=== PATIENT | female | born 1985 | race Caucasian/White ===

== ENCOUNTER → 2016-09-09 | Outpatient (CLI) | payer MEDICAID | LOC: FIMAGING 14:03 | PROVIDERS: ATTEND Family Medicine | DX: Z32.01 Encounter for pregnancy test, result positive (principal); Z3A.09 9 weeks gestation of pregnancy ==

== ENCOUNTER → 2016-11-21 | Outpatient (CLI) | payer MEDICAID | LOC: FIMAGING 08:01 | PROVIDERS: ATTEND Midwife | DX: Z34.02 Encounter for supervision of normal first pregnancy, second trimester (principal); Z3A.19 19 weeks gestation of pregnancy ==

== ENCOUNTER 2017-01-26 02:04 | Observation (INO) | payer MEDICAID ==
[2017-01-26] MEDS ORDERED: ONDANSETRON 4 MG/2 ML VIAL IVP PRN (02:15)
[2017-01-26] MEDS ORDERED: TERBUTALINE SULFATE 1 MG/ML VIAL IV PRN (02:37)
[2017-01-26] MEDS ORDERED: LR 1,000 ML IV PRN (02:37)
[2017-01-26] MEDS ORDERED: LR 1,000 ML IV ONE (03:00)
[2017-01-26 03:05] LABS: % IMMATURE GRANULYOCYTES 0.6 % (0.0-1.1); ADD DIFF? NO; ADD MORPH? NO; ADD SCAN? NO; ATYPICAL LYMPHOCYTE FLAG 0 (0-99); FRAGMENT RBC FLAG 0 (0-99); HEMOGLOBIN 11.6 g/dL (12.6-16.3); LEFT SHIFT FLG 0 (0-99); LIPEMIA HEMOLYSIS FLAG 90 (0-99); MEAN CELL HEMOGLOBIN 32.6 pg (27.9-34.1); MEAN CELL HEMOGLOBIN CONCENTR. 35.2 g/dL (32.4-36.7); MEAN CELL VOLUME 92.7 fL (81.5-99.8); MEAN PLATELET VOLUME 10.3 fL (8.7-11.7); PLATELET CLUMPS FLAG 0 (0-99); PLATELET COUNT 224 10^3/uL (150-400); RED BLOOD CELL COUNT 3.56 10^6/uL (4.18-5.33); RED CELL DISTRIBUTION WIDTH 12.6 % (11.5-15.2)
[2017-01-26 03:11] LABS: ALANINE AMINOTRANSFERASE 37 IU/L (9-52); ASPARTATE AMINOTRANSFERASE 23 IU/L (14-46); BILIRUBIN,TOTAL 0.6 mg/dL (0.1-1.4); BILIRUBIN-CONJUGATED 0.1 mg/dL (0.0-0.5); BILIRUBIN-UNCONJUGATED 0.5 mg/dL (0.0-1.1); CREATININE 0.8 mg/dL (0.6-1.0); GLOMERULAR FILTRATION RATE > 60; LACTATE DEHYDROGENASE 436 IU/L (313-618); URIC ACID 6.1 mg/dL (2.5-6.8)
[2017-01-26] MEDS ORDERED: D5W LR 1,000 ML IV SCH (03:30)
--- NOTE | 2017-01-26 08:05 | GHP ---
[f rep st] PREOP HISTORY AND PHYSICAL DATE OF ADMISSION: 01/26/2017 ADMISSION DIAGNOSES: 1. Intrauterine at 29-1/7 weeks' gestation. 2. Contractions. 3. Gastroenteritis. DISCHARGE DIAGNOSES: 1. Intrauterine at 29-1/7 weeks' gestation. 2. Contractions, resolved. 3. Gastroenteritis. INDICATIONS: Patient is a 31-year-old, 2, para 0-0-1-0, who is 29-1/7 weeks' gestation. She called me yesterday afternoon complaining of increasing lower abdominal cramping. She was at work. She hydrated well. She came home from work a couple of hours later and had large amounts of diarrhe a, and then had 2-3 episodes of significant projectile vomiting. The patient then began denise and arrived on Labor and Delivery for evaluation. She was denise upon arrival and status overall remained reassuring. Pre-eclampsia labs were obtained which were normal, with the exception of the elevated white blood count and slight anemia. The patient received a 1 L fluid bolus and then followed by 500 cc of D5-LR. The patient's denise and cramping essentially resolved, sta tus remained reassuring, and patient was complaining of significant pain in her left mid back, that w as about a golf ball-sized point tenderness, and she was writhing in pain and not able to sleep. Pat ient was given 1 mg of morphine and patient's pain immediately resolved. It has been several hours s laura that time, and patient has not had any further pain. She is not having any cramping. She is anaya ving good movement. She is able to keep down foods, and patient is anxious to go home. She de clined cervical exam and patient is not denise, so 1 was not done. precautions and kick counts were stressed with the patient, hydration was discussed, and pre-eclampsia precautions were d iscussed. The patient has a scheduled appointment with us Friday in the office. She will keep th at or call us if anything happens, and she needs to be seen sooner. /[id number]/MODL
== END 2017-01-26 08:00 | disposition home or self-care (01) ==
LOC: FLD 02:04
PROVIDERS: ADMIT Obstetrics & Gynecology; ATTEND Obstetrics & Gynecology
DX: O99.613 Diseases of the digestive system complicating pregnancy, third trimester (principal); K52.9 Noninfective gastroenteritis and colitis, unspecified; Z3A.29 29 weeks gestation of pregnancy
CPT/HCPCS: G0378 ×2; J2405

== ENCOUNTER → 2017-02-03 | Outpatient (CLI) | payer MEDICAID | LOC: FIMAGING 13:56 | PROVIDERS: ATTEND Obstetrics & Gynecology | DX: Z03.79 Encounter for other suspected maternal and fetal conditions ruled out (principal); Z3A.30 30 weeks gestation of pregnancy ==

== ENCOUNTER 2017-03-24 05:25 | Observation (INO) | payer MEDICAID ==
[2017-03-24] MEDS ORDERED: TERBUTALINE SULFATE 1 MG/ML VIAL IV ONE (06:03)
[2017-03-24 06:17] LABS: % IMMATURE GRANULYOCYTES 0.5 % (0.0-1.1); ABSOLUTE IMMATURE GRANULOCYTES 0.05 10^3/uL (0.00-0.10); ADD DIFF? NO; ADD MORPH? NO; ADD SCAN? NO; ATYPICAL LYMPHOCYTE FLAG 10 (0-99); FRAGMENT RBC FLAG 0 (0-99); HEMATOCRIT 33.5 % (38.0-47.0); LEFT SHIFT FLG 0 (0-99); LIPEMIA HEMOLYSIS FLAG 90 (0-99); MEAN CELL HEMOGLOBIN 33.1 pg (27.9-34.1); MEAN CELL HEMOGLOBIN CONCENTR. 35.8 g/dL (32.4-36.7); MEAN CELL VOLUME 92.3 fL (81.5-99.8); MEAN PLATELET VOLUME 10.8 fL (8.7-11.7); PLATELET CLUMPS FLAG 20 (0-99); PLATELET COUNT 261 10^3/uL (150-400); RED BLOOD CELL COUNT 3.63 10^6/uL (4.18-5.33); RED CELL DISTRIBUTION WIDTH 12.9 % (11.5-15.2)
[2017-03-24] MEDS ORDERED: LR 1,000 ML IV ONE (07:30)
[2017-03-24] MEDS ORDERED: OLIVE OIL 118 ML BTL ONE (07:49)
[2017-03-24 07:55] VITALS: BP 99/63; PULSE 86
[2017-03-24] MEDS ORDERED: OLIVE OIL 118 ML BTL MISC ONE (08:14)
== END 2017-03-24 09:00 | disposition home or self-care (01) ==
LOC: FLD 05:25
PROVIDERS: ADMIT Obstetrics & Gynecology; ATTEND Obstetrics & Gynecology
PROC: 10S0XZZ Reposition Products of Conception, External Approach (ICD-10-PCS; principal; 2017-03-24)
DX: O32.1XX0 Maternal care for breech presentation, not applicable or unspecified (principal)
CPT/HCPCS: J3105

== ENCOUNTER 2017-04-19 06:00 | Inpatient (IN) | payer MEDICAID ==
[2017-04-19] MEDS ORDERED: TERBUTALINE SULFATE 1 MG/ML VIAL IV PRN (07:36)
[2017-04-19] MEDS ORDERED: OXYTOCIN 20 UNIT in LR 1,000 ML IV PRN (07:36)
[2017-04-19] MEDS ORDERED: LR 1,000 ML IV PRN (07:36)
[2017-04-19] MEDS ORDERED: EPSOM SALT 454 GM TP PRN (07:36)
[2017-04-19] MEDS ORDERED: OLIVE OIL 118 ML BTL MISC PRN (07:36)
[2017-04-19] MEDS ORDERED: LIDOCAINE 1% 300 MG/30 ML SDV ONE (07:40)
[2017-04-19] MEDS ORDERED: OXYTOCIN 10 UNIT/ML VIAL ONE (07:41)
[2017-04-19] MEDS ORDERED: MISOPROSTOL 200 MCG TAB ONE (07:41)
[2017-04-19] MEDS ORDERED: AMMONIA AROMATIC 1 EACH AMP IH ONE (07:41)
[2017-04-19] MEDS ORDERED: OLIVE OIL 118 ML BTL ONE (07:41)
[2017-04-19] MEDS ORDERED: TERBUTALINE SULFATE 1 MG/ML VIAL ONE (07:41)
--- NOTE | 2017-04-19 07:41 | OBPROG ---
Labor Progress Note Assessment/Plan: Assessment:cat 1 fhr pitocin per protocol exam 3-/-2 cephalic no regular contractions postdates Plan:pitocin per protocol 04/19/17 07:39 Subjective/Intrapartum Course: 04/19/17 07:37 Doing well denies pain with the west. Able to discontinue the west with an exam. - SVE Dilation (cm): 3, 4 Effacement (%): 75 Station: -2 Membranes: Intact - Contraction Pattern Assessment Current Contraction Pattern: Irregular - FHR Assessment Renner FHR (bpm): 135 FHR Pattern Variability: Moderate FHR Category: 1 - AP Antepartum Course: 31 yo edc 04/12 2017 came in for iol for postdates. West bulb in place on admit to labor and delivery, smoker quit with early , growth us 42% with last us, gbs negative, exam after west 3-/-2 cephalic soft pitocin begun per protocol 04/19/17 07:41 - Physical Exam General Appearance: WD/WN, alert, no apparent distress Respiratory: chest non-tender, lungs clear, normal breath sounds Cardiac/Chest: regular rate, rhythm Abdomen: normal bowel sounds Extremities: normal range of motion, Birdie's sign (negative bilaterally) DTR- Lower Extremities: Knee (R): 1+, Knee (L): 1+ (no clonus) Skin: normal color, warm/dry Neuro/Psych: no motor/sensory deficits, alert, normal mood/affect, oriented x 3 Oxytocin Orders Assessment - Pre-Induction/Augmentation Assessment Gestational Age: 41 week(s) and 0 day(s) ICD10 Worksheet Patient Problems: Problems Problem Status Onset iol term postdates Acute
[2017-04-19] MEDS ORDERED: OXYTOCIN 30 UNIT in NS 500 ML IV SCH (07:45)
--- NOTE | 2017-04-19 08:22 | GHP ---
[f rep st] HISTORY AND PHYSICAL DATE OF ADMISSION: 04/19/2017 HISTORY OF PRESENT ILLNESS: Patient is a 31-year-old, 1, para 0, with an EDC of 04/12/2017 who has a gestational age of 41 weeks who has been routinely seen through [facility] with transfer of care at 22 weeks. The patient has had menarche since 15 years. Interval is 3 to 4 weeks. Length is 7 days. Patient is usually irregular. LMP was 07/08/2016 with uncertain, had an early ultrasound that helped to confirm. Ultrasound was on 11/21/2016, size equals dates. EFW was 35th percentile. No previa. Anatomy was within normal limits. Had early Zika testing because she had traveled to [facility]. That was negative. The patient was a smoker, quit with the . PAST MEDICAL HISTORY: The patient has a history of asthma, history of anemia. Previously a smoker who quit 3 weeks with knowledge of . Previously rubella immunized. Varicella immunized. PAST SURGICAL HISTORY: Sports injury. Tore right ACL with repair in 2007, appendectomy in 2014. SOCIAL HISTORY: The patient is . Denies drug use. No longer smoking. MEDICATIONS: vitamins and iron. ALLERGIES: Denies allergies. FAMILY HISTORY: Benign. REVIEW OF SYSTEMS: Times 8 is benign. LABS: Patient is A positive, antibody negative. RPR is nonreactive. Rubella is immune. Hepatitis is negative. HIV is negative. TSH was within normal limits on 09/17/2016. Hepatitis C was negative. HSV was negative. Varicella immunity was positive. Zika was negative. Pap was within normal limits. Gonorrhea and chlamydia were negative. Verifi was negative. 1-hour GTT was within normal limits. PHYSICAL EXAMINATION: GENERAL: Patient is awake, alert, oriented x3. LUNGS: Clear bilaterally. ABDOMEN: Bowel sounds are positive in all 4 quadrants. EXTREMITIES: DTRs are 1+ bilaterally with no clonus. Homans sign is negative bilaterally. PLAN OF CARE: 1. GBS negative. 2. Rios bulb for ripening. That was discontinued on assessment of cervix with admit to Labor and Delivery. The patient was 3 to 4 cm, 75% effaced, -2 station, cephalic and soft. 3. Pitocin per protocol. 4. Consult Dr. Melody Cantrell as needed for plan of care and patient safety. /[id number]/MODL MTDD
[2017-04-19 08:38] LABS: % IMMATURE GRANULYOCYTES 0.3 % (0.0-1.1); ABSOLUTE IMMATURE GRANULOCYTES 0.04 10^3/uL (0.00-0.10); ADD DIFF? NO; ADD MORPH? NO; ADD SCAN? NO; ATYPICAL LYMPHOCYTE FLAG 10 (0-99); FRAGMENT RBC FLAG 0 (0-99); HEMATOCRIT 36.4 % (38.0-47.0); HEMOGLOBIN 13.2 g/dL (12.6-16.3); LEFT SHIFT FLG 0 (0-99); LIPEMIA HEMOLYSIS FLAG 90 (0-99); MEAN CELL HEMOGLOBIN 33.2 pg (27.9-34.1); MEAN CELL HEMOGLOBIN CONCENTR. 36.3 g/dL (32.4-36.7); MEAN CELL VOLUME 91.7 fL (81.5-99.8); MEAN PLATELET VOLUME 11.4 fL (8.7-11.7); PLATELET CLUMPS FLAG 0 (0-99); PLATELET COUNT 209 10^3/uL (150-400); RED BLOOD CELL COUNT 3.97 10^6/uL (4.18-5.33)
--- NOTE | 2017-04-19 11:23 | OBPROG ---
Labor Progress Note Assessment/Plan: Assessment:cat 1 fhr pitocin per protocol at 8 mu contractions q2-3 minutes feeling some cramping arom clear fluid exam 3-75/-1 cephalic postdates iol Plan:pitocin per protocol arom clear fluid 04/19/17 07:39 04/19/17 11:22 Subjective/Intrapartum Course: 04/19/17 07:37 Doing well denies pain with the west. Able to discontinue the west with an exam. 04/19/17 11:21 denies regular pain. Feeling some cramping. Ok to break bag of water per patient Objective: 04/19/17 08:00 Patient ABO/Rh A POSITIVE 04/19/17 08:00 - SVE Dilation (cm): 3, 4 Effacement (%): 75 Station: -1 Membranes: AROM Amniotic Fluid Color: Clear - Contraction Pattern Assessment Current Contraction Pattern: Regular - FHR Assessment Renner FHR (bpm): 135 FHR Pattern Variability: Moderate FHR Category: 1 - Procedures Non-surgical Procedures: Amniotomy - AP Antepartum Course: 31 yo edc 04/12 2017 came in for iol for postdates. West bulb in place on admit to labor and delivery, smoker quit with early , growth us 42% with last us, gbs negative, exam after west 3-75/-2 cephalic soft pitocin begun per protocol 04/19/17 07:41 Oxytocin Orders Assessment - Pre-Induction/Augmentation Assessment Gestational Age: 41 week(s) and 0 day(s) ICD10 Worksheet Patient Problems: Problems Problem Status Onset iol term postdates Acute
[2017-04-19] MEDS ORDERED: fentaNYL 2MCG/ML/BUP 0.1% RTU 100 ML BAG EP ONE (16:25)
[2017-04-19] MEDS ORDERED: PHENYLEPHRINE HCL 100 MCG/ML SYR ONE (16:25)
--- NOTE | 2017-04-19 16:57 | PREANESOB ---
Obstetric Pre-Anesthesia Info - General Info Proposed Procedure: LABOR EPIDURAL : 2 Para: 0 RAMIN: 04/12/17 Gestational Age: 41 week(s) and 0 day(s) - Labor Status Cervical Dilation per last OB SVE: 3, 4 Station per last OB SVE: -1 Amniotic Fluid Color: Clear Anesthesia ROS: WNL Allergies/Adverse Reactions: Allergy/AdvReac Type Severity Reaction Status Date / Time No Known Allergies Allergy Verified 01/26/17 02:51 Home Medications: Medication Instructions Recorded Albuterol [Proventil Inhaler] 2 puffs IH 02/10/13 oxyCODONE/APAP 5/325 [Percocet 1 tab PO Q6 #10 tab 01/12/15 5/325] Visit Medications: Generic Name Dose Route Start Last Admin Trade Name Freq PRN Reason Stop Dose Admin Lactated Ringer's 1,000 mls @ 0 mls/hr 04/19/17 07:36 Lr IV 04/20/17 07:35 PRN PRN SEE PROTOCOL CONDITIONS Protocol Per Protocol Oxytocin 20 unit/ Lactated 1,002 mls @ 150 mls/hr 04/19/17 07:36 Ringer's IV PRN PRN Post- bleeding Oxytocin 30 unit/ Sodium 503 mls @ 0 mls/hr 04/19/17 07:45 Chloride IV 10/16/17 07:44 CONT LUZ MARIA Protocol Per Protocol Ibuprofen 600 mg 04/19/17 07:36 Motrin PO 10/16/17 07:35 Q6HRS PRN post , inflammation Magnesium Sulfate 454 gm 04/19/17 07:36 Epsom Salt TP 10/16/17 07:35 Q1H PRN perineal discomfort Glen Oil 118 ml 04/19/17 07:36 Sweet Oil MISC 10/16/17 07:35 ONCE PRN perineal massage Terbutaline Sulfate 0.25 mg 04/19/17 07:36 Brethine IV 10/16/17 07:35 ONCE PRN Tachysystole Discontinued Medications Generic Name Dose Route Start Last Admin Trade Name Freq PRN Reason Stop Dose Admin Ammonia (Aromatic Spirit) Confirm 04/19/17 07:41 Ammonia Aromatic Administered 04/19/17 07:42 Dose 1 each IH .STK-MED ONE Ephedrine Sulfate Confirm 04/19/17 16:25 Ephedrine Sulfate Administered 04/19/17 16:26 Dose 50 mg .ROUTE .STK-MED ONE Fentanyl/Bupivacaine HCl Confirm 04/19/17 16:25 Fentanyl/Bupivacaine/Ns 2 Mcg/Ml 0.1% (Premix Administered 04/19/17 16:26 Dose 100 ml EP .STK-MED ONE Lidocaine HCl Confirm 04/19/17 07:40 Lidocaine Hcl 1% Administered 04/19/17 07:41 Dose 300 mg .ROUTE .STK-MED ONE Misoprostol Confirm 04/19/17 07:41 Cytotec Administered 04/19/17 07:42 Dose 800 mcg .ROUTE .STK-MED ONE Glen Oil Confirm 04/19/17 07:41 Sweet Oil Administered 04/19/17 07:42 Dose 118 ml .ROUTE .STK-MED ONE Oxytocin Confirm 04/19/17 07:41 Pitocin Administered 04/19/17 07:42 Dose 40 unit .ROUTE .STK-MED ONE Phenylephrine HCl Confirm 04/19/17 16:25 Neosynephrine Administered 04/19/17 16:26 Dose 1,000 mcg .ROUTE .STK-MED ONE Terbutaline Sulfate Confirm 04/19/17 07:41 Brethine Administered 04/19/17 07:42 Dose 1 mg .ROUTE .STK-MED ONE - Vital Signs Height/Weight (Nursing): Height 160.02 cm Weight 63.503 kg - Focused Exam Neck exam: FROM Mallampati Score: Class 1 Mouth exam: normal dental/mouth exam Pulmonary: no respiratory distress Cardiovascular: regular rate and rhythym Labs: 04/19/17 08:00 Patient ABO/Rh A POSITIVE 04/19/17 08:00 - Plan Consent Signed and on Chart: Yes Patient/Guardian Understands and Agrees to Plan: Yes Urgent/Emergent Case: Divya orosco completed preop but documented later for safe timely pt care
[2017-04-19] MEDS ORDERED: ONDANSETRON 4 MG/2 ML VIAL IVP PRN (16:58)
[2017-04-19] MEDS ORDERED: PHENYLEPHRINE HCL 100 MCG/ML SYR IVP PRN (16:58)
[2017-04-19] MEDS ORDERED: fentaNYL 2MCG/ML/BUP 0.1% RTU 100 ML EP SCH (17:00)
[2017-04-19] MEDS ORDERED: LR 500 ML IV SCH (17:00)
--- NOTE | 2017-04-19 17:35 | OBPROG ---
Labor Progress Note Assessment/Plan: Assessment:cat 1 fhr pitocin per protocol at 8 mu previous tachysystole from 6-8 mu inadequete mvus contractions q3-4 minutes denies pain after epidural placement clear fluid continues exam /0 cephalic postdates iol iupc placed Plan:pitocin per protocol 04/19/17 07:39 04/19/17 11:22 04/19/17 17:32 Subjective/Intrapartum Course: 04/19/17 07:37 Doing well denies pain with the west. Able to discontinue the west with an exam. 04/19/17 11:21 denies regular pain. Feeling some cramping. Ok to break bag of water per patient 04/19/17 17:31 feeling more comfortable after epidural placement. Denies pain.Ok with placement of iupc to assist with contractions strength and adequecy. Objective: 04/19/17 08:00 Patient ABO/Rh A POSITIVE 04/19/17 08:00 - SVE Membranes: AROM Amniotic Fluid Color: Clear - Contraction Pattern Assessment Current Contraction Pattern: Regular - Procedures Non-surgical Procedures: Amniotomy - AP Antepartum Course: 31 yo edc 04/12 2017 came in for iol for postdates. West bulb in place on admit to labor and delivery, smoker quit with early , growth us 42% with last us, gbs negative, exam after west 3-75/-2 cephalic soft pitocin begun per protocol 04/19/17 07:41 Oxytocin Orders Assessment - Pre-Induction/Augmentation Assessment Gestational Age: 41 week(s) and 0 day(s) ICD10 Worksheet Patient Problems: Problems Problem Status Onset iol term postdates Acute
[2017-04-19] MEDS ORDERED: CEFAZOLIN 2 GM/DEXTROSE/100 ML BAG IV ONE (23:00)
[2017-04-19] MEDS ORDERED: CITRIC ACID/SODIUM CITRATE 30 ML UDCUP ONE (23:01)
--- NOTE | 2017-04-19 23:08 | OBPROG ---
Labor Progress Note Assessment/Plan: Assessment:cat 1 fhr pitocin off contractions q3-4 minutes denies pain + bloody show clear fluid continues exam 5/80/0 cephalic head above the cervix no change in the cervical dilation postdates iol iupc in place continued inadequate contractions pattern with many attempts to utilize pitocin changing doses multiple to times to get there with no success Plan:consulted dr. tavarez on POC on way to the hospital, anesthesia notified of plan will proceed with section 04/19/17 07:39 04/19/17 11:22 04/19/17 17:32 04/19/17 23:05 Subjective/Intrapartum Course: 04/19/17 07:37 Doing well denies pain with the west. Able to discontinue the west with an exam. 04/19/17 11:21 denies regular pain. Feeling some cramping. Ok to break bag of water per patient 04/19/17 17:31 feeling more comfortable after epidural placement. Denies pain.Ok with placement of iupc to assist with contractions strength and adequecy. 04/19/17 23:05 denies pain with the epidural. Discussed need for section no change in the cervix ok with POC Objective: 04/19/17 08:00 Patient ABO/Rh A POSITIVE 04/19/17 08:00 - SVE Dilation (cm): 5 Effacement (%): 100 Station: 0 Membranes: AROM Amniotic Fluid Color: Clear - Contraction Pattern Assessment Current Contraction Pattern: Regular - FHR Assessment Renner FHR (bpm): 125 FHR Pattern Variability: Moderate FHR Category: 1 - Procedures Non-surgical Procedures: Amniotomy - AP Antepartum Course: 31 yo edc 04/12 2017 came in for iol for postdates. West bulb in place on admit to labor and delivery, smoker quit with early , growth us 42% with last us, gbs negative, exam after west 3-4/75/-2 cephalic soft pitocin begun per protocol 04/19/17 07:41 Oxytocin Orders Assessment - Pre-Induction/Augmentation Assessment Gestational Age: 41 week(s) and 0 day(s) ICD10 Worksheet Patient Problems: Problems Problem Status Onset iol term postdates Acute
--- NOTE | 2017-04-19 23:14 | OBPROG ---
Labor Progress Note Assessment/Plan: Assessment:cat 1 fhr 1945 late note pitocin increasing pitocin, tachsystole on and off adjusting pitocin accordingly contractions q3-4 minutes denies pain + bloody show clear fluid continues exam 5/100/0 cephalic head from changed from 4-5 cervical dilation postdates iol iupc in place Plan:pitocin per protocol, dr. tavarez consulted on poc 04/19/17 07:39 04/19/17 11:22 04/19/17 17:32 04/19/17 23:05 04/19/17 23:09 Subjective/Intrapartum Course: G!P) ga 41 weeks west bulb, pitocin, epidural, slow change in cervix, iupc multiple attempts to achieve adequete strength in contractions. slow change in cervix all day . proceeded to section for failure to descend and failure to dilate 04/19/17 07:37 Doing well denies pain with the west. Able to discontinue the west with an exam. 04/19/17 11:21 denies regular pain. Feeling some cramping. Ok to break bag of water per patient 04/19/17 17:31 feeling more comfortable after epidural placement. Denies pain.Ok with placement of iupc to assist with contractions strength and adequecy. 04/19/17 23:05 denies pain with the epidural. Discussed need for section no change in the cervix ok with POC 04/19/17 23:12 Objective: 04/19/17 08:00 Patient ABO/Rh A POSITIVE 04/19/17 08:00 - SVE Dilation (cm): 5 Effacement (%): 100 Station: 0 Membranes: AROM Amniotic Fluid Color: Clear - Contraction Pattern Assessment Current Contraction Pattern: Regular - Procedures Non-surgical Procedures: Amniotomy - AP Antepartum Course: 31 yo edc 04/12 2017 came in for iol for postdates. West bulb in place on admit to labor and delivery, smoker quit with early , growth us 42% with last us, gbs negative, exam after west 3-4/75/-2 cephalic soft pitocin begun per protocol 04/19/17 07:41 Oxytocin Orders Assessment - Pre-Induction/Augmentation Assessment Gestational Age: 41 week(s) and 0 day(s) ICD10 Worksheet Patient Problems: Problems Problem Status Onset iol term postdates Acute
[2017-04-19] MEDS ORDERED: LR 500 ML IV ONE (23:18)
[2017-04-19] MEDS ORDERED: ceFAZolin 2 GM/DEXTROSE 100 ML IV ONE (23:18)
[2017-04-19] MEDS ORDERED: FAMOTIDINE 20 MG/NACL 50 ML IV ONE (23:18)
[2017-04-19] MEDS ORDERED: LIDOCAINE 2% 5 ML SDV ONE (23:23)
[2017-04-19] MEDS ORDERED: LR 1,000 ML IV SCH (23:30)
[2017-04-19] MEDS ORDERED: OXYTOCIN 100 UNITS/10 ML VIAL ONE (23:55)
[2017-04-19] MEDS ORDERED: fentaNYL 100 MCG/2 ML INJ ONE (23:55)
[2017-04-20] MEDS ORDERED: METHYLERGONOVINE MAL 0.2 MG/ML INJ ONE (00:06)
[2017-04-20] MEDS ORDERED: morphINE PF 5 MG/10 ML INJ ONE (00:14)
[2017-04-20] MEDS ORDERED: fentaNYL 100 MCG/2 ML INJ IVP PRN (00:28)
[2017-04-20] MEDS ORDERED: MEPERIDINE 25 MG/ML SYR IVP PRN (00:28)
[2017-04-20] MEDS ORDERED: ONDANSETRON 4 MG/2 ML VIAL IVP PRN (00:28)
[2017-04-20] MEDS ORDERED: SIMETHICONE 80 MG TAB CHEW PO PRN (00:43)
[2017-04-20] MEDS ORDERED: BISACODYL 10 MG SUPP PR PRN (00:43)
[2017-04-20] MEDS ORDERED: HYDROCODONE/APAP 5/325 TAB PO PRN (00:43)
[2017-04-20] MEDS ORDERED: POLYETHYLENE GLYCOL 3350 17 GM PKT PO PRN (00:43)
[2017-04-20] MEDS ORDERED: DOCUSATE SODIUM 100 MG CAP PO PRN (00:43)
[2017-04-20] MEDS ORDERED: LACTULOSE 20 GM/30 ML UDCUP PO PRN (00:43)
[2017-04-20] MEDS ORDERED: PROMETHAZINE HCL 25 MG/ML INJ IVP PRN (00:43)
[2017-04-20] MEDS ORDERED: MAGNESIUM HYDROXIDE 30 ML UDCUP PO PRN (00:43)
--- NOTE | 2017-04-20 00:49 | OBDEL ---
Info Type: Primary Presentation at Delivery: Vertex L&D Analgesia/Anesthesia Type: Epidural GBS+: No Intrapartum Medications: Generic Name Dose Route Start Last Admin Trade Name Freq PRN Reason Stop Dose Admin Ondansetron HCl 4 mg 04/19/17 16:58 04/19/17 20:53 Zofran IVP 04/20/17 16:57 4 mg Q4HRS PRN Administration Nausea/Vomiting, Can't Take PO Discontinued Medications Generic Name Dose Route Start Last Admin Trade Name Freq PRN Reason Stop Dose Admin Famotidine/Sodium Chloride 50 mls @ 200 mls/hr 04/19/17 23:18 04/19/17 23:25 Pepcid 20 Mg (Premix) IV 04/19/17 23:32 50 mls ONCE ONE Administration - Care Provider Offset 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 slow change in cervix all day . proceeded to section for failure to descend and failure to dilate 04/19/17 07:37 Doing well denies pain with the west. Able to discontinue the west with an exam. 04/19/17 11:21 denies regular pain. Feeling some cramping. Ok to break bag of water per patient 04/19/17 17:31 feeling more comfortable after epidural placement. Denies pain.Ok with placement of iupc to assist with contractions strength and adequecy. 04/19/17 23:05 denies pain with the epidural. Discussed need for section no change in the cervix ok with POC 04/19/17 23:12 Indications for Delivery: Postterm Unfavorable Cervix (Arrest of dilation-failure to progress) Vaginal Delivery - Labor and Delivery Amniotic Fluid Color: Clear Non-surgical Procedures: Amniotomy Operative Report - Delivery Pre-op Diagnoses: IUP @ 41 1/7 wks for postdate IOL with arrest of dilation- failure to progress Post-op Diagnoses: IUP @ 41 1/7 wks for postdate IOL with arrest of dilation- failure to progress History of Prior Section: No Number of Prior Sections: 0 Nulliparous Prior to Delivery: Yes Indications for Current Section: Arrest of Dilation Procedure: Low Transverse Surgeon: Melody Cantrell [employer] Laboratory Chief: Bessy Joyner Anesthesiologist: Manish Norris Complications: Other (Specify) (uterine inversion) Findings: A viable female at 1159 with 8 and 9 Apgars in cephalic presentation. Delayed cord clamping x 60 seconds. Cord clamped x 2 and then cut. Cord blood obtained. Placenta delivered spontaneously intact with 3-vc. Uterine inversion was noted and reverted to normal position. Grossly normal appearing uterus, tubes and ovaries b/l. Specimen(s)/Path: Other (Specify) (none) IV Fluid (ml): 2,500 EBL: 800 cc UO: 150 cc clear urine at end Data RAMIN: 04/12/17 Gestational Age: 41 week(s) and 1 day(s) Renner Delivery Date: 04/19/17 Delivery Time: 11:59 Sex of Infant: Female ("Barb") Score (1 Min): 8 Score (5 Min): 9 ICD10 Worksheet Patient Problems: Problems Problem Status Onset Arrest of dilation, delivered, current hospitalization Acute S/P primary low transverse Acute iol term postdates Acute - ICD10 Problem Qualifiers (1) Arrest of dilation, delivered, current hospitalization (2) S/P primary low transverse
[2017-04-20] MEDS ORDERED: HYDROmorphONE/DILAUDID 6 MG/30 ML PCA IV PRN (02:35)
[2017-04-20] MEDS ORDERED: NALOXONE HCL 0.4 MG/ML INJ IVP PRN (02:35)
[2017-04-20] MEDS ORDERED: fentaNYL 100 MCG/2 ML INJ IVP ONE (02:45)
[2017-04-20] MEDS: KETOROLAC 30 MG/1 ML SDV IVP SCH ×3 (05:57→17:44)
[2017-04-20] MEDS: SENNOSIDES/DOCUSATE SODIUM TAB PO SCH ×2 (17:13→20:04)
[2017-04-20] MEDS: IRON POLYSAC/IRON HEME 28 MG TAB PO SCH (20:04)
[2017-04-20] MEDS: HYDROmorphONE/DILAUDID 2 MG TAB PO PRN (22:29)
[2017-04-21] MEDS: KETOROLAC 30 MG/1 ML SDV IVP SCH (00:16)
[2017-04-21] MEDS: HYDROmorphONE/DILAUDID 2 MG TAB PO PRN ×6 (02:38→22:34)
[2017-04-21] MEDS: IBUPROFEN 600 MG TAB PO PRN ×3 (06:27→18:47)
[2017-04-21] MEDS: IRON POLYSAC/IRON HEME 28 MG TAB PO SCH (08:19)
[2017-04-21] MEDS: SENNOSIDES/DOCUSATE SODIUM TAB PO SCH (08:19)
--- NOTE | 2017-04-21 09:05 | OBPP ---
Progress Note Assessment/Plan: Assessment: well nipples intact ff@u scant rubra lochia pain well managed vs wnl incision covered no bleeding noted mobility to be increased today Plan:po day 1 expectant management 04/19/17 07:39 04/19/17 11:22 04/19/17 17:32 04/19/17 23:05 04/19/17 23:09 04/21/17 09:02 Subjective/ Course: 04/21/17 09:01 Doing well . Denies pain. well. Objective: 04/21/17 06:30 Patient ABO/Rh A POSITIVE 04/19/17 08:00 Temp Pulse Resp BP Pulse Ox 36.4 C 89 16 96/54 L 98 04/21/17 00:22 04/21/17 00:22 04/21/17 00:22 04/21/17 00:22 04/21/17 00:22 Uterine Tone: Firm Physical Exam - Physical Exam General Appearance: WD/WN, no apparent distress Respiratory: chest non-tender, lungs clear, normal breath sounds Cardiac/Chest: regular rate, rhythm Abdomen: normal bowel sounds Extremities: normal range of motion DTR- Lower Extremities: Knee (R): 1+, Knee (L): 1+ (no clonus) Skin: normal color, warm/dry Neuro/Psych: no motor/sensory deficits, alert, normal mood/affect, oriented x 3
--- NOTE | 2017-04-21 15:02 | GOP ---
[f rep st] OPERATIVE REPORT DATE OF OPERATION: 04/19/2017 SURGEON: Melody Cantrell DO MEASUREMENT TECHNICIAN: Bessy Joyner CNM. ANESTHESIA: Epidural. ANESTHESIOLOGIST: Manish Norris MD. PREOPERATIVE DIAGNOSIS: Intrauterine at 39-1/7 weeks for postdate induction of labor with arrest of dilatation and failure to progress. POSTOPERATIVE DIAGNOSIS: Intrauterine at 39-1/7 weeks for postdate induction of labor with arrest of dilatation and failure to progress. PROCEDURE PERFORMED: Primary low transverse section. FINDINGS: A viable female , born at 2359 with 8 and 9 Apgars in cephalic presentation, direct occiput posterior. Delayed cord clamping x60 seconds. Cord clamped x2, then cut. Cord blood was obtained. Placenta delivered spontaneously intact with 3-vessel cord. Uterine version was noted, reverted back to normal position without difficulty. Grossly normal-appearing uterus, tubes, and ovaries bilaterally. ESTIMATED BLOOD LOSS: 800 cc. INDICATIONS: Patient is a 31-year-old, 1, para 0, who presented for induction of labor secondary to post dates. Patient had a Rios balloon placed and that was removed the next morning and she was noted to be 3 to 4 cm dilated. Pitocin was started. An adequate pattern of labor was not seen after IUPC was placed. Never had greater than 200 [place] units. Patient would get tachysystole with increased Pitocin, so she did not progress past 4 cm. Discussed proceeding with a primary at this time secondary to arrest of dilation, failure to progress. Surgical consents were obtained. We discussed benefits, risks, alternatives, including but not limited to, bleeding , infection, and damage to surrounding organs. Patient understands all risks at this time and wants to proceed with surgery. DESCRIPTION OF PROCEDURE: Patient was taken to the operating room where she had epidural anesthesia. She was prepped and draped usual sterile manner. Placed in supine position with leftward tilt. Rios catheter was placed in her bladder. After adequate anesthesia was assured, Pfannenstiel skin incision was made 2 fingerbreadths above the pubic symphysis. Incision was carried down to underlying fascia with the Bovie. Fascia was then incised in the midline. Fascial incision was extended laterally with the Davis scissors. Superior aspect of the fascial incision was grasped with Zach clamps, elevated, and rectus muscles dissected off sharply. Inferior aspect of fascial incision was then grasped with Zach clamps, elevated, rectus muscles dissected off sharply. Rectus muscles were then in the midline. Peritoneum was then visualized and entered bluntly and extended superiorly and inferiorly, with good visualization of the bladder. Bladder blade was then inserted. Vesicouterine peritoneum was then grasped with pickups, entered sharply with Metzenbaum scissors. Incision was then carried laterally, and the bladder flap was created digitally. Bladder blade was then reinserted. A low-transverse uterine incision was made with a knife. The incision was extended anteriorly and posteriorly digitally. There was clear amniotic fluid noted upon entry to the amniotic sac. Baby girl was then delivered in cephalic presentation in direct occiput position without difficulty. Mouth and nose were bulb suctioned. Cord clamping was delayed for a minute. Cord was then clamped x2 and cut. Infant handed off to awaiting nurse practitioner. Cord blood was obtained and sent. Placenta was then removed spontaneously intact with 3-vessel cord. At this time, we noticed the uterus was inverted. We then reverted it by use of a hand/fist. The uterus was atonic for quite some time. The patient did receive Pitocin as well as IM Methergine, and the uterus became firm. Uterus was cleared of all clots and debris. Uterine incision was then repaired with 0 Vicryl in a running, locked fashion. Hemostasis noted. A second imbricating layer of suture was then performed with 0 Vicryl. Hemostasis was noted. Uterus was then returned to the abdomen. Gutters were cleared of all clots and debris. Reinspection of the incision revealed some oozing. A [id number] stitch of 0 Vicryl was placed as well as surgical [place], and hemostasis was achieved. Rectus muscles were then reapproximated with 2-0 Vicryl in inverted mattress fashion. Fascia was then closed with 0 Vicryl in a running fashion. Hemostasis was noted. Skin was then closed with 4 -0 Vicryl on a Dillon needle. Patient tolerated the procedure well. No complications. Sponge, lap, needle, and instrument count was correct x2. Patient was then taken to recovery room in stable condition. INTRAVENOUS FLUIDS: 2500 cc LR. URINE OUTPUT: 150 cc of clear urine at the end of procedure. /[id number]/MODL MTDD
[2017-04-22] MEDS: IBUPROFEN 600 MG TAB PO PRN ×3 (00:35→12:46)
[2017-04-22] MEDS: SENNOSIDES/DOCUSATE SODIUM TAB PO SCH ×2 (00:36→08:46)
[2017-04-22] MEDS: IRON POLYSAC/IRON HEME 28 MG TAB PO SCH ×2 (00:36→08:47)
[2017-04-22 16:22] VITALS: BP 102/62; PULSE 79; RESP 17; TEMP 98.4; O2SAT 94
--- NOTE | 2017-04-22 17:57 | OBPP ---
Progress Note Assessment/Plan: Assessment: 31 y/o POD #2.5 s/p LTCS with uterine inversion and PP hemorrhage Plan: Pt is stable and symptomatic with significant anemia. She will d/c home today with instructions to take iron TID, Ibuprofen and Dilaudid prn. Follow-up @ [facility] 2, 4 and 6 weeks. 04/22/17 17:55 Subjective/ Course: 04/21/17 09:01 Doing well . Denies pain. well. 04/22/17 17:54 Pt is doing well today. She denies dizziness or lightheadness, she is ambulating and voiding without difficulty and had a + BM today. She has good pain control with just Ibuprofen and is ready to d/c home. Her milk has come in and baby is breast feeding well. Objective: 04/22/17 06:30 Patient ABO/Rh A POSITIVE 04/19/17 08:00 Temp Pulse Resp BP Pulse Ox 36.9 C 79 17 102/62 94 04/22/17 16:00 04/22/17 16:00 04/22/17 16:00 04/22/17 16:00 04/22/17 16:00 Uterine Position/Fundal Height: Umbilicus -2 Uterine Tone: Firm Physical Exam - Physical Exam Neck: non-tender, full range of motion, supple Respiratory: chest non-tender, lungs clear, normal breath sounds Cardiac/Chest: regular rate, rhythm Abdomen: normal bowel sounds, incision (c/d/i) Extremities: swelling (no), Birdie's sign (neg)
== END 2017-04-22 18:00 | disposition home or self-care (01) | DRG 766 ==
LOC: FLD 06:35 → FOB 04-20 03:00
PROVIDERS: ADMIT Advanced Practice Midwife; ATTEND Advanced Practice Midwife
PROC: 10D00Z1 Extraction of Products of Conception, Low, Open Approach (ICD-10-PCS; principal; 2017-04-19)
PROC: 0U7C7ZZ Dilation of Cervix, Via Natural or Artificial Opening (ICD-10-PCS; 2017-04-19)
DX: O62.1 Secondary uterine inertia (principal); Z37.0 Single live birth; O48.0 Post-term pregnancy; Z3A.41 41 weeks gestation of pregnancy; O34.593 Maternal care for other abnormalities of gravid uterus, third trimester
CPT/HCPCS: J0690; J1170; J1885; J2210; J2274; J2370; J2405; J2550; J2590; J3010; J3105